=== PATIENT | female | born 1980 | race Two or more races ===

== ENCOUNTER 2016-06-29 07:46 | Inpatient (IN) | payer OTHER ==
[2016-06-29] MEDS ORDERED: METHYLERGONOVINE 0.2 MG/ML IM ONE (09:00)
[2016-06-29] MEDS ORDERED: OXYTOCIN 30U/ 0.9% NaCL 500ML 500 ML IV SCH (10:12)
[2016-06-29] MEDS ORDERED: LACTATED RINGERS 1,000 ML IV SCH ×2 (10:12→10:15)
[2016-06-29] MEDS ORDERED: ACYC-57 PO (10:24)
[2016-06-29] MEDS ORDERED: LABE300T PO (10:24)
[2016-06-29] MEDS ORDERED: PREN1TAB60 PO (10:24)
[2016-06-29] MEDS ORDERED: PLEASE ENTER HEIGHT AND WEIGHT MC SCH ×2 (10:30→13:00)
[2016-06-29] MEDS ORDERED: METOCLOPRAMIDE 5 MG/ML, 2ML IV ONE (10:30)
[2016-06-29] MEDS ORDERED: SODIUM CITRATE/CITRIC ACID 30 ML UDC PO ONE (10:30)
[2016-06-29] MEDS ORDERED: LACTATED RINGERS 1,000 ML IVBOLUS ONE (10:30)
[2016-06-29] MEDS ORDERED: PLEASE ENTER ALLERGIES MC SCH ×2 (10:30)
[2016-06-29 11:09] LABS: ASPARTATE AMINO TRANSFERASE 13 U/L (15-37); BLOOD UREA NITROGEN 19 mg/dL (7-18)
[2016-06-29] MEDS ORDERED: FENTANYL PF 100 MCG/2ML ONE ×2 (11:30→12:04)
[2016-06-29] MEDS ORDERED: OXYTOCIN 30U/ 0.9% NaCL 500ML 500 ML ONE (11:55)
[2016-06-29] MEDS ORDERED: CLINDAMYCIN PMX 900MG/50ML 50 ML ONE (11:59)
[2016-06-29] MEDS ORDERED: CARBOPROST TROMETHAMINE 250 MCG/ML, 1ML IM ONE (12:04)
[2016-06-29] MEDS: OXYTOCIN 30U/ 0.9% NaCL 500ML 500 ML IV SCH ×2 (12:10→22:10)
[2016-06-29] MEDS: LACTATED RINGERS 1,000 ML IV SCH ×4 (12:10→22:10)
[2016-06-29] MEDS ORDERED: DIPH,PERTUSS(ACELL),TET VAC/PF NC IM-VACC PRN (12:30)
[2016-06-29] MEDS ORDERED: IBUPROFEN 600 MG TABLET PO PRN (12:30)
[2016-06-29] MEDS ORDERED: SIMETHICONE 80 MG CHEW TAB PO PRN (12:30)
[2016-06-29] MEDS ORDERED: ACETAMINOPHEN 325 MG TABLET PO PRN ×2 (12:30)
[2016-06-29] MEDS ORDERED: morphine SULFATE 10 MG/ML, 1ML IVPush PRN ×2 (12:30)
[2016-06-29] MEDS ORDERED: MEASLES,MUMPS&RUBELLA VACC/PF 0.5 ML SQ-VACC PRN (12:30)
[2016-06-29] MEDS ORDERED: ONDANSETRON 2MG/ML, 2ML IV PRN (12:30)
[2016-06-29] MEDS ORDERED: MISOPROSTOL 200 MCG TABLET PR PRN (12:30)
[2016-06-29] MEDS ORDERED: CALCIUM CARBONATE 500 MG TAB.CHEW PO PRN (12:30)
[2016-06-29] MEDS ORDERED: LABETALOL 100 MG TABLET ONE (13:16)
[2016-06-29] MEDS ORDERED: LABETALOL 200 MG TABLET ONE (13:16)
[2016-06-29] MEDS ORDERED: OXYcodone 5 MG/5 ML ORAL.SOL UDC PO PRN (13:30)
[2016-06-29] MEDS: LABETALOL 100 MG TABLET PO SCH ×2 (13:30→21:58)
[2016-06-29] MEDS ORDERED: LABETALOL 5MG/ML, 20ML IV PRN (13:30)
[2016-06-29] MEDS ORDERED: ONDANSETRON 2MG/ML, 2ML IVPush PRN (13:30)
[2016-06-29] MEDS ORDERED: hydrALAzine 20 MG/ML, 1ML IV PRN (13:30)
[2016-06-29] MEDS ORDERED: morphine SULFATE 10 MG/ML, 1ML IV PRN (13:30)
[2016-06-29] MEDS ORDERED: FENTANYL PF 100 MCG/2ML IV PRN (13:30)
[2016-06-29] MEDS: KETOROLAC 30 MG/1 ML IV SCH ×2 (16:31→22:17)
[2016-06-29] MEDS: OXYcodone/APAP 5/325MG TABLET PO PRN ×2 (18:19→22:20)
[2016-06-29 19:15] VITALS: BP 136/81
[2016-06-29] MEDS: ACYCLOVIR 400 MG TABLET PO SCH (21:15)
[2016-06-30] VITALS (8 sets, daily range): BP systolic 101–137; BP diastolic 63–87
[2016-06-30] MEDS: OXYcodone/APAP 5/325MG TABLET PO PRN ×3 (03:50→15:09)
[2016-06-30] MEDS: LACTATED RINGERS 1,000 ML IV SCH ×5 (04:10→20:10)
[2016-06-30] MEDS: KETOROLAC 30 MG/1 ML IV SCH ×4 (04:21→22:05)
[2016-06-30] MEDS: LABETALOL 100 MG TABLET PO SCH ×3 (05:54→23:51)
[2016-06-30] MEDS: OXYTOCIN 30U/ 0.9% NaCL 500ML 500 ML IV SCH ×2 (08:10→18:10)
[2016-06-30] MEDS: DOCUSATE 100 MG CAPSULE PO PRN (08:42)
[2016-06-30] MEDS: PRENATAL VIT/IRON/FA 1 EACH TABLET PO SCH (08:42)
[2016-06-30] MEDS: ACYCLOVIR 400 MG TABLET PO SCH ×2 (08:42→22:05)
[2016-07-01] MEDS: LACTATED RINGERS 1,000 ML IV SCH ×2 (04:10)
[2016-07-01] MEDS: OXYTOCIN 30U/ 0.9% NaCL 500ML 500 ML IV SCH (04:10)
[2016-07-01] MEDS: KETOROLAC 30 MG/1 ML IV SCH (05:04)
[2016-07-01] MEDS: LABETALOL 100 MG TABLET PO SCH (06:20)
[2016-07-01 07:00] VITALS: BP 122/82
[2016-07-01] MEDS: ACYCLOVIR 400 MG TABLET PO SCH (09:26)
[2016-07-01] MEDS: DOCUSATE 100 MG CAPSULE PO PRN (09:26)
[2016-07-01] MEDS: PRENATAL VIT/IRON/FA 1 EACH TABLET PO SCH (09:26)
[2016-07-01] MEDS: OXYcodone/APAP 5/325MG TABLET PO PRN (09:45)
[2016-07-01] MEDS ORDERED: OXYC-302 PO (10:25)
[2016-07-01] MEDS ORDERED: IBUP-1222 PO (10:26)
[2016-07-01] MEDS ORDERED: DOCU-30 PO (10:28)
== END 2016-07-01 11:25 | disposition home or self-care (01) | DRG 765 ==
LOC: LDIP 10:04 → 2NW 16:17
PROVIDERS: ADMIT Obstetrics & Gynecology; ATTEND Obstetrics & Gynecology
PROC: 10D00Z1 Extraction of Products of Conception, Low, Open Approach (ICD-10-PCS; principal; 2016-06-29)
PROC: 0UB70ZZ Excision of Bilateral Fallopian Tubes, Open Approach (ICD-10-PCS; 2016-06-29)
DX: O13.4 Gestational [pregnancy-induced] hypertension without significant proteinuria, complicating childbirth (principal); O40.3XX0 Polyhydramnios, third trimester, not applicable or unspecified; Z37.0 Single live birth; O69.81X0 Labor and delivery complicated by cord around neck, without compression, not applicable or unspecified; O10.92 Unspecified pre-existing hypertension complicating childbirth; Z3A.37 37 weeks gestation of pregnancy; Z30.2 Encounter for sterilization; Z88.0 Allergy status to penicillin; Z23 Encounter for immunization
CPT/HCPCS: 36415; 80053; 82248; 82803; 84550; 85025; 86850; 86900; 88302; J1885; J3010; J2210; J7120